=== PATIENT | male | born 1995 | race Native Hawaiian/Other Pacific Islander ===

== ENCOUNTER 2023-04-25 14:14 | Inpatient (IN) | payer MEDICAID ==
[2023-04-25] VITALS (8 sets, daily range): BP systolic 129–142; BP diastolic 71–81
[~2023-04-25] VITALS: Ht 175.3 cm; Wt 90.9 kg
[2023-04-25 15:06] LABS: CLARITY,URINE CLOUDY (Clear); COLOR,URINE YELLOW (Yellow); GLUCOSE, URINE NEGATIVE (Neg); KETONES,URINE NEGATIVE (Neg); LEUKOCYTE ESTERASE ,URINE NEGATIVE (Neg); NITRITES, URINE NEGATIVE (Neg); OCCULT BLOOD,URINE TRACE-INTACT (Neg); PH,URINE 6.5 (4.8-8.0); PROTEIN,URINE NEGATIVE (Neg); UROBILINOGEN,URINE 0.2 E.U/dL (0.2-1.0)
[2023-04-25 15:17] LABS: UA COLLECTION TYPE CLN CATCH MIDSTREAM
[2023-04-25 15:18] LABS: AMORPHOUS PHOSPHATES 2+
[2023-04-25 15:20] LABS: BACTERIA,URINE FEW /HPF (Neg); MUCUS STRANDS FEW /LPF (Neg); SQUAMOUS EPITHELIAL CELL,UR FEW /LPF (FEW)
[2023-04-25 15:29] LABS: BASOPHILS # (AUTO) 0.2 X10'3 (0-0.2); BASOPHILS % (AUTO) 0.8 % (0-1); EOSINOPHILS # (AUTO) 0.2 X10'3 (0-0.9); EOSINOPHILS % (AUTO) 0.9 % (0-6); HEMATOCRIT 41.1 % (42.0-52.0); HEMOGLOBIN 13.7 g/dl (14.0-17.9); LYMPHOCYTES # (AUTO) 1.6 X10'3 (1.1-4.8); LYMPHOCYTES % (AUTO) 8.6 % (21-51); MEAN CORPUSCULAR HEMOGLOBIN 29.8 PG (27.0-31.0); MEAN CORPUSCULAR HGB CONC 33.4 g/dL (33.0-36.5); MEAN CORPUSCULAR VOLUME 89.4 FL (78-98); MEAN PLATELET VOLUME 8.7 FL (7.4-10.4); MONOCYTES # (AUTO) 0.6 X10'3 (0-0.9); MONOCYTES % (AUTO) 3.3 % (2-12); NEUTROPHILS # (AUTO) 15.9 X10'3 (1.8-7.7); NEUTROPHILS % (AUTO) 86.4 % (42-75); PLATELET COUNT 296 X10'3 (140-440); RED BLOOD COUNT 4.59 X10'6 (4.70-6.10); RED CELL DISTRIBUTION WIDTH 13.6 % (11.5-14.5); WHITE BLOOD COUNT 18.5 X10'3 (4.5-11.0)
[2023-04-25 15:41] LABS: ALANINE AMINOTRANSFERASE 33 U/L (12-78); ALBUMIN 4.5 G/DL (3.4-5.0); ALBUMIN/GLOBULIN RATIO 1.3 (1.1-1.5); ALKALINE PHOSPHATASE 79 IU/L (46-116); ANION GAP 10 (8-16); ASPARTATE AMINO TRANSFERASE 16 U/L (10-37); BILIRUBIN,TOTAL 0.5 MG/DL (0.1-1.0); BLOOD UREA NITROGEN 17 MG/DL (7-18); BUN/CREATININE RATIO 18.7 (10.0-20.0); CALCIUM 9.7 MG/DL (8.5-10.1); CHLORIDE 106 MMOL/L (99-107); CREATININE 0.91 MG/DL (0.60-1.10); GLUCOSE 114 MG/DL (70-104); LIPASE < 50 U/L (73-393); POTASSIUM 4.1 MMOL/L (3.5-5.1); SODIUM 143 MMOL/L (135-145); TOTAL CARBON DIOXIDE 27.1 MMOL/L (24-32); eGFR > 90 ML/MIN
[2023-04-25] MEDS ORDERED: normal saline 1000ML IV soln IVB ONE (16:00)
[2023-04-25] MEDS ORDERED: ondansetron/PF 4mg/2ml inj IV ONE (16:00)
[2023-04-25 16:16] LABS: PLATELET ESTIMATE NORMAL; TOTAL CELLS COUNTED 100
[2023-04-25] MEDS: morphine 4 MG/ML inj SYRINge IV PRN ×4 (17:01→22:35)
[2023-04-25] MEDS ORDERED: piperacillin/tazo 3.375gm/50ml 50 ML IV ONE (17:35)
[2023-04-25] MEDS ORDERED: magnesium 2GM in 50ml NS 50 ML IV PRN (18:15)
[2023-04-25] MEDS ORDERED: acetaminophen 325mg tablet PO PRN ×2 (18:15)
[2023-04-25] MEDS ORDERED: potassium Cl 40MEQ/1/2NS 520ml 520 ML IV PRN (18:15)
[2023-04-25] MEDS ORDERED: piperacillin/tazo 4.5gm/100ml 100 ML IV SCH ×2 (18:15→19:16)
[2023-04-25] MEDS ORDERED: magnesium 4gm in 100ml NS 100 ML IV PRN (18:15)
[2023-04-25] MEDS ORDERED: mag hydrox/Alum hydrox/simeth 30ml oral suspension PO PRN (18:15)
[2023-04-25] MEDS ORDERED: magnesium hydroxide 30ml (MOM) UD suspension PO PRN (18:15)
[2023-04-25] MEDS ORDERED: magnesium Cl slow-release 64mg tablet PO PRN (18:15)
[2023-04-25] MEDS ORDERED: potassium Cl 20 mEq SR tablet PO PRN (18:15)
[2023-04-25] MEDS ORDERED: HYDROcodone/acetaminophen 5mg/325mg tablet PO PRN (18:15)
[2023-04-25] MEDS ORDERED: morphine 2 MG/ML inj. syringe IV PRN ×2 (18:15→19:20)
[2023-04-25] MEDS: normal saline 1000ml 1,000 ML IV SCH (19:06)
[2023-04-25] MEDS ORDERED: proCHLORperazine 10 MG/2 ml inj IV PRN (19:20)
[2023-04-25] MEDS ORDERED: meperidine/PF 25mg/ml syringe IV PRN ×3 (19:20)
[2023-04-25] MEDS ORDERED: ondansetron/PF 4mg/2ml inj IV PRN ×2 (19:20→21:50)
[2023-04-25] MEDS ORDERED: ringers solution, lacted 1,000 ML IV SCH (19:20)
--- NOTE | 2023-04-25 19:21 | NUR ---
RN CALLED OR AND SPOKE WITH VAL AND LET HER KNOW THAT PT DOES NOT HAVE AN ORDER FOR CONSENT. PER VAL SHE WILL GET CONSENT WHEN PT GETS TO OR.
[2023-04-25] MEDS: K and/or MAG REPLACEMENT MC SCH (20:00)
[2023-04-25] MEDS ORDERED: dexamethasone sod phosphate 10mg/ml inj ONE (20:30)
[2023-04-25] MEDS ORDERED: neostigmine methylsulfate 1 MG/ML 10ml vial ONE (20:30)
[2023-04-25] MEDS ORDERED: glycopyrrolate 0.2mg/ml inj ONE (20:30)
[2023-04-25] MEDS ORDERED: sevoflurane 250ml liquid IH ONE (20:30)
[2023-04-25] MEDS ORDERED: ondansetron/PF 4mg/2ml inj ONE (20:30)
[2023-04-25] MEDS ORDERED: midazolam 1 mg/ML 2ml injection ONE (20:34)
[2023-04-25] MEDS ORDERED: fentaNYL /PF 50mcg/ml 5ml ampule ONE (20:34)
[2023-04-25] MEDS ORDERED: propofol inj 20 ML IV ONE (20:36)
[2023-04-25] MEDS ORDERED: rocuronium 10mg/ml inj IV ONE (20:36)
[2023-04-25] MEDS ORDERED: LIDOcaine 2% (20mg/ml) 5ml vial ONE (20:37)
[2023-04-25] MEDS ORDERED: BUPIVAcaine/PF 2.5 mg/ml (0.25%) 30ml vial ONE (20:44)
[2023-04-25] MEDS ORDERED: HYDROcodone/acetaminophen 10/325mg tab PO PRN (21:50)
[2023-04-25] MEDS ORDERED: naloxone 0.4 mg/ml inj IV PRN (21:50)
--- NOTE | 2023-04-25 21:58 | NUR ---
Received from OR via BED, accompanied by Anesthesiologist and report given by Anesthesiolgist AND OR NURSE. PT ARRIVED DROWSY ON ROOM AIR. VSS. DENIES PAIN OR NAUSEA. PER RN, PT PULLED IV OUT POST SURGERY, WILL START NEW IV AFTER INITIAL ASSESSMENT. 3 ABD BANDAID SITES C/D/I. WILL CONTINUE TO MONITOR. Addendum: 04/25/23 at 2206 by Grecia Horne RN Amended: Links added.
--- NOTE | 2023-04-25 22:58 | NUR ---
PT HAS MET D/C CRITERIA FROM [facility]. SBAR REPORT GIVEN TO NURSEMARIA VICTORIA ON PCU. 20G IV TO R AC RUNNING LR. VSS. 3 ABD LAP SITE BANDAIDS C/D/I. SCDS APPLIED. PT HAS BEEN RESTING WITH EYES CLOSED. MADE AWARE OF TRANSPORT. PT ONLY BELONGINGS ARE A PAIR OF BLACK SHOES AND THEY WERE SENT TO PCU WITH PT. TEACHING COMPLETED. STAFF AT BEDSIDE TO ASSUME CARE OF PT. BED LOCKED AND IN LOW POSITION. CALL LIGHT IN REACH. Addendum: 04/25/23 at 2302 by Grecia Horne RN Amended: Links added.
--- NOTE | 2023-04-25 23:00 | NUR ---
Patient in room PCU 3023. I have received report from Grecia SANCHEZ from recovery and had the opportunity to ask questions and assume patient care.
[2023-04-25] MEDS ORDERED: CHOL500049 PO (23:47)
[2023-04-25] MEDS ORDERED: FLUO10TA34 PO (23:47)
[2023-04-25] MEDS ORDERED: TERB250T89 PO (23:47)
[2023-04-25] MEDS ORDERED: CHOL100046 PO (23:50)
[2023-04-26 02:00] VITALS: BP 125/71
[2023-04-26] MEDS: piperacillin/tazo 4.5gm/100ml 100 ML IV SCH ×3 (02:43→17:35)
[2023-04-26] MEDS: morphine 2 MG/ML inj. syringe IV PRN ×3 (02:54→21:47)
[2023-04-26] MEDS: normal saline 1000ml 1,000 ML IV SCH ×2 (05:57→14:48)
[2023-04-26 06:00] VITALS: BP 107/65
[2023-04-26] MEDS: ondansetron/PF 4mg/2ml inj IV PRN (06:44)
--- NOTE | 2023-04-26 07:05 | NUR ---
Problems reprioritized. Patient report given, questions answered & plan of care reviewed with Bailey SANCHEZ.
[2023-04-26 07:17] LABS: BASOPHILS % (AUTO) 0.1 % (0-1); EOSINOPHILS % (AUTO) 0 % (0-6); HEMOGLOBIN 13.8 g/dl (14.0-17.9); LYMPHOCYTES # (AUTO) 0.7 X10'3 (1.1-4.8); LYMPHOCYTES % (AUTO) 3.5 % (21-51); MEAN CORPUSCULAR HEMOGLOBIN 30.3 PG (27.0-31.0); MEAN CORPUSCULAR HGB CONC 33.8 g/dL (33.0-36.5); MEAN CORPUSCULAR VOLUME 89.7 FL (78-98); MEAN PLATELET VOLUME 8.7 FL (7.4-10.4); MONOCYTES # (AUTO) 0.9 X10'3 (0-0.9); MONOCYTES % (AUTO) 4.4 % (2-12); NEUTROPHILS # (AUTO) 19.6 X10'3 (1.8-7.7); PLATELET COUNT 280 X10'3 (140-440); RED BLOOD COUNT 4.57 X10'6 (4.70-6.10); RED CELL DISTRIBUTION WIDTH 13.6 % (11.5-14.5); WHITE BLOOD COUNT 21.3 X10'3 (4.5-11.0)
[2023-04-26 07:37] LABS: ALANINE AMINOTRANSFERASE 26 U/L (12-78); ALBUMIN 3.8 G/DL (3.4-5.0); ALBUMIN/GLOBULIN RATIO 1.2 (1.1-1.5); ALKALINE PHOSPHATASE 66 IU/L (46-116); ANION GAP 12 (8-16); ASPARTATE AMINO TRANSFERASE 14 U/L (10-37); BILIRUBIN,TOTAL 1.3 MG/DL (0.1-1.0); BLOOD UREA NITROGEN 12 MG/DL (7-18); CALCIUM 8.6 MG/DL (8.5-10.1); CHLORIDE 104 MMOL/L (99-107); GLUCOSE 137 MG/DL (70-104); POTASSIUM 3.4 MMOL/L (3.5-5.1); SODIUM 139 MMOL/L (135-145); eGFR 90 ML/MIN
[2023-04-26] MEDS: K and/or MAG REPLACEMENT MC SCH ×2 (08:00→20:00)
[2023-04-26] MEDS ORDERED: HYDR-3965 PO (10:41)
[2023-04-26] MEDS ORDERED: potassium Cl 20 mEq SR tablet PO STA (10:48)
[2023-04-26] MEDS: HYDROcodone/acetaminophen 10/325mg tab PO PRN ×3 (10:58→20:14)
[2023-04-26 11:00] VITALS: BP 121/60
[2023-04-26 15:00] VITALS: BP 131/80
[2023-04-26] MEDS: ketorolac trometh. 30mg/ml inj. IV PRN (16:54)
[2023-04-26 18:00] VITALS: BP 107/52
--- NOTE | 2023-04-26 18:15 | NUR ---
Patient in room PCU 3023. I have received report from DANIEL Avalos and had the opportunity to ask questions and assume patient care.
--- NOTE | 2023-04-26 18:36 | NUR ---
Problems reprioritized. Patient report given, questions answered & plan of care reviewed with Nathalia SANCHEZ.
[2023-04-26] MEDS: FLUoxetine 10mg capsule PO SCH (20:14)
[2023-04-26 22:00] VITALS: BP 128/68
[2023-04-27] MEDS: normal saline 1000ml 1,000 ML IV SCH ×3 (00:27→22:51)
[2023-04-27 02:00] VITALS: BP 126/74
[2023-04-27] MEDS: piperacillin/tazo 4.5gm/100ml 100 ML IV SCH ×3 (02:04→20:50)
[2023-04-27] MEDS: ketorolac trometh. 30mg/ml inj. IV PRN (05:55)
[2023-04-27 06:00] VITALS: BP 114/69
--- NOTE | 2023-04-27 06:12 | NUR ---
Problems reprioritized. Patient report given, questions answered & plan of care reviewed with DANIEL Avalos.
[2023-04-27 07:30] LABS: BASOPHILS % (AUTO) 0.3 % (0-1); EOSINOPHILS # (AUTO) 0.1 X10'3 (0-0.9); EOSINOPHILS % (AUTO) 0.4 % (0-6); HEMATOCRIT 36.5 % (42.0-52.0); HEMOGLOBIN 12.3 g/dl (14.0-17.9); LYMPHOCYTES # (AUTO) 0.9 X10'3 (1.1-4.8); MEAN CORPUSCULAR HEMOGLOBIN 30.4 PG (27.0-31.0); MEAN CORPUSCULAR HGB CONC 33.8 g/dL (33.0-36.5); MEAN CORPUSCULAR VOLUME 89.9 FL (78-98); MEAN PLATELET VOLUME 9.1 FL (7.4-10.4); MONOCYTES # (AUTO) 0.9 X10'3 (0-0.9); MONOCYTES % (AUTO) 5.6 % (2-12); NEUTROPHILS # (AUTO) 13.8 X10'3 (1.8-7.7); NEUTROPHILS % (AUTO) 87.7 % (42-75); PLATELET COUNT 232 X10'3 (140-440); RED BLOOD COUNT 4.06 X10'6 (4.70-6.10); RED CELL DISTRIBUTION WIDTH 13.9 % (11.5-14.5); WHITE BLOOD COUNT 15.7 X10'3 (4.5-11.0)
[2023-04-27] MEDS: FLUoxetine 10mg capsule PO SCH (07:33)
[2023-04-27 07:55] LABS: ALANINE AMINOTRANSFERASE 27 U/L (12-78); ALBUMIN 3.2 G/DL (3.4-5.0); ALBUMIN/GLOBULIN RATIO 0.9 (1.1-1.5); ALKALINE PHOSPHATASE 73 IU/L (46-116); ANION GAP 11 (8-16); ASPARTATE AMINO TRANSFERASE 23 U/L (10-37); BILIRUBIN,TOTAL 1.6 MG/DL (0.1-1.0); BLOOD UREA NITROGEN 9 MG/DL (7-18); BUN/CREATININE RATIO 9.2 (10.0-20.0); CALCIUM 8.6 MG/DL (8.5-10.1); CHLORIDE 104 MMOL/L (99-107); CREATININE 0.98 MG/DL (0.60-1.10); GLUCOSE 130 MG/DL (70-104); POTASSIUM 3.2 MMOL/L (3.5-5.1); SODIUM 136 MMOL/L (135-145); TOTAL CARBON DIOXIDE 21.5 MMOL/L (24-32); TOTAL PROTEIN 6.8 G/DL (6.4-8.2); eGFR > 90 ML/MIN
[2023-04-27] MEDS: K and/or MAG REPLACEMENT MC SCH ×2 (08:00→20:00)
[2023-04-27] MEDS: potassium Cl 20 mEq SR tablet PO PRN ×3 (09:43→20:49)
[2023-04-27] MEDS: HYDROcodone/acetaminophen 10/325mg tab PO PRN (09:50)
[2023-04-27] MEDS: ondansetron/PF 4mg/2ml inj IV PRN (10:13)
[2023-04-27 11:00] VITALS: BP 123/65
[2023-04-27] MEDS ORDERED: oxyCODONE/APAP 10/325mg tablet PO STA (11:31)
--- NOTE | 2023-04-27 11:40 | NUR ---
Contacted Dr Ann regarding patient wanting to leave AMA. Patient was already pulling IV out when I got to the room. When I went into check on patient 1 hour prior he was fine resting after being given Zofran by concrete spreader. I advised patient if his IV starts to beep again to let me know and I will start a new IV. Patient and both verbalized understanding. Patient was given [place] earlier and aware when Dr Ann rounds he will address the [place] vs Percocet order per the conversation and I had. Patient was very upset in the room his was at bedside trying to convince to stay. She asked if we could get a transfer to [facility]. When I went back into room after speaking with Dr Ann and getting a one time order for Percocet now Patient was willing to stay with the percocet now and getting a new IV placed. was very upset at bedside and felt that I was disregarding her about patients prozac. I advised patients that I was addressing my patients concerns and was not disregarding him but my 1st concern is addressing my patients concerns and then I would speak with her about his medications and seeing if I could get that addressed. Patient was given the Percocet and my discharge planner Kristal is in the patients room trying to start a new IV.
--- NOTE | 2023-04-27 12:24 | NUR ---
Spoke with Melissa Jack at [facility] pharmacy on [address] : Orders stated Fluoxetine 10 mg daily by mouth for 1 week then take 2 tablets by mouth daily
--- NOTE | 2023-04-27 14:19 | NUR ---
Per Patients patient is currently taking 3 tablets a day of his Fluoxetine and his dose was just increased by Dr Bains. Contacted Amnatony Garcia in [facility] and per Chelle who is a call welcome center attendant she does not see any notes indicating that patients medication has been increased from 10 mg PO BID. I asked if she could get ahold of the nurse to see if they have any different notes. At this time she has not been able to reach anyone but will submit a request for someone from the office to call me back regarding medication Fluoxetine dosage.
--- NOTE | 2023-04-27 14:38 | NUR ---
Per Kaylah Bains nurse patients notes in chart state that patient takes 30mg PO Fluoxetine daily. Kaylah will make sure this gets corrected with patients pharmacy. Received orders from Dr Ann to go ahead and give patient an additional dose of 20 mg PO Fluoxetine now and then change dose to 30 mg PO daily starting tomorrow. Patient requesting tomorrows dose to be at night due to that is when he normally takes the medication. Addendum: 04/27/23 at 1441 by Bailey Santiago RN Per Kaylah patient starting taking this dose on 04/06/23 Dr Dubose changed it to this dosage.
[2023-04-27] MEDS ORDERED: FLUoxetine 20mg capsule PO ONE (14:45)
[2023-04-27 15:00] VITALS: BP 132/72
[2023-04-27] MEDS: oxyCODONE/APAP 10/325mg tablet PO PRN ×2 (15:13→20:49)
[2023-04-27 18:00] VITALS: BP 125/68
--- NOTE | 2023-04-27 18:25 | NUR ---
Patient in room PCU 3023. I have received report from DANIEL Avalos and had the opportunity to ask questions and assume patient care.
--- NOTE | 2023-04-27 18:35 | NUR ---
Problems reprioritized. Patient report given, questions answered & plan of care reviewed with Nathalia SANCHEZ.
[2023-04-27] MEDS: docusate sod 100mg capsule PO SCH (20:48)
[2023-04-27] MEDS: magnesium hydroxide 30ml (MOM) UD suspension PO SCH (20:49)
[2023-04-27 22:00] VITALS: BP 126/68
[2023-04-28 02:00] VITALS: BP 124/68
[2023-04-28] MEDS: piperacillin/tazo 4.5gm/100ml 100 ML IV SCH ×2 (02:10→10:31)
--- NOTE | 2023-04-28 06:19 | NUR ---
Problems reprioritized. Patient report given, questions answered & plan of care reviewed with DANIEL Feliz.
[2023-04-28 07:09] LABS: BASOPHILS % (AUTO) 0.2 % (0-1); EOSINOPHILS # (AUTO) 0.2 X10'3 (0-0.9); EOSINOPHILS % (AUTO) 1.6 % (0-6); HEMOGLOBIN 12.9 g/dl (14.0-17.9); LYMPHOCYTES # (AUTO) 0.9 X10'3 (1.1-4.8); LYMPHOCYTES % (AUTO) 6.8 % (21-51); MEAN CORPUSCULAR HEMOGLOBIN 30.5 PG (27.0-31.0); MEAN CORPUSCULAR HGB CONC 33.8 g/dL (33.0-36.5); MEAN CORPUSCULAR VOLUME 90.2 FL (78-98); MEAN PLATELET VOLUME 8.8 FL (7.4-10.4); MONOCYTES # (AUTO) 0.9 X10'3 (0-0.9); MONOCYTES % (AUTO) 6.6 % (2-12); NEUTROPHILS # (AUTO) 11.1 X10'3 (1.8-7.7); NEUTROPHILS % (AUTO) 84.8 % (42-75); PLATELET COUNT 238 X10'3 (140-440); RED BLOOD COUNT 4.21 X10'6 (4.70-6.10); RED CELL DISTRIBUTION WIDTH 13.5 % (11.5-14.5); WHITE BLOOD COUNT 13.1 X10'3 (4.5-11.0)
[2023-04-28 07:17] VITALS: BP 122/70
[2023-04-28 07:20] LABS: ALANINE AMINOTRANSFERASE 36 U/L (12-78); ALBUMIN 3.2 G/DL (3.4-5.0); ALBUMIN/GLOBULIN RATIO 0.7 (1.1-1.5); ALKALINE PHOSPHATASE 113 IU/L (46-116); ANION GAP 13 (8-16); ASPARTATE AMINO TRANSFERASE 26 U/L (10-37); BILIRUBIN,TOTAL 2.2 MG/DL (0.1-1.0); BLOOD UREA NITROGEN 9 MG/DL (7-18); CALCIUM 8.9 MG/DL (8.5-10.1); CHLORIDE 103 MMOL/L (99-107); GLUCOSE 107 MG/DL (70-104); POTASSIUM 3.6 MMOL/L (3.5-5.1); SODIUM 138 MMOL/L (135-145); TOTAL CARBON DIOXIDE 22.4 MMOL/L (24-32); TOTAL PROTEIN 7.5 G/DL (6.4-8.2); eGFR > 90 ML/MIN
[2023-04-28] MEDS: K and/or MAG REPLACEMENT MC SCH (08:00)
[2023-04-28] MEDS: docusate sod 100mg capsule PO SCH (08:08)
[2023-04-28] MEDS: magnesium hydroxide 30ml (MOM) UD suspension PO SCH (08:08)
[2023-04-28] MEDS: ketorolac trometh. 30mg/ml inj. IV PRN (09:10)
[2023-04-28] MEDS ORDERED: polyethylene glycol 3350 17gm powd pack PO SCH (09:35)
[2023-04-28] MEDS ORDERED: oxyCODONE/APAP 10/325mg tablet PO PRN (09:35)
[2023-04-28] MEDS ORDERED: methylnaltrexone br 12mg/0.6ml inj***SubQ only SQ PRN (09:35)
[2023-04-28] MEDS: normal saline 1000ml 1,000 ML IV SCH (10:35)
[2023-04-28 12:04] VITALS: BP 110/74
[2023-04-28] MEDS ORDERED: IBUP-1985 PO (13:16)
[2023-04-28] MEDS ORDERED: METR-159 PO ×2 (13:16)
[2023-04-28] MEDS ORDERED: CIPR-259 PO (13:16)
[2023-04-28] MEDS ORDERED: OMEP20CA15 PO (13:16)
[2023-04-28] MEDS ORDERED: FLUoxetine 10mg capsule PO SCH (20:00)
== END 2023-04-28 14:05 | disposition home or self-care (01) | DRG 234 ==
LOC: ER 14:15 → ED HOLD 18:21 → PCU 3S 22:50
PROVIDERS: ADMIT Internal Medicine; ATTEND Internal Medicine
PROC: 0DTJ4ZZ Resection of Appendix, Percutaneous Endoscopic Approach (ICD-10-PCS; principal; 2023-04-25 20:30)
DX: K35.30 Acute appendicitis with localized peritonitis, without perforation or gangrene (principal); R65.10 Systemic inflammatory response syndrome (SIRS) of non-infectious origin without acute organ dysfunction; R16.0 Hepatomegaly, not elsewhere classified; L05.91 Pilonidal cyst without abscess; D72.829 Elevated white blood cell count, unspecified; F32.A Depression, unspecified; F41.9 Anxiety disorder, unspecified; E87.6 Hypokalemia; F12.10 Cannabis abuse, uncomplicated; Z71.51 Drug abuse counseling and surveillance of drug abuser; Q63.1 Lobulated, fused and horseshoe kidney
CPT/HCPCS: 36415; 74176; 76700; 80053; 81001; 83605; 83690; 84145; 85007; 85025; 85651; 86140; 86885; 86900; 86901; 87040; 87088; 99285; A4215; A4618; A6258; A7000; G0378; J0780; J1100; J1885; J2250; J2270; J2405; J2543; J2704; J2710; J3010; J3490; J7030; J7120

== ENCOUNTER → 2024-03-30 | Outpatient (CLI) | payer MEDICAID ==
[~2024-03-30] MED LIST: CHOL100046 PO; FLUO10TA34 PO; IBUP-1985 PO; METR-159 PO; OMEP20CA15 PO; iohexol 300mg/ml 100ml inj. ONE
== END | disposition home or self-care (01) ==
LOC: RAD 10:07
PROVIDERS: ATTEND Family Medicine
DX: M89.8X8 Other specified disorders of bone, other site (principal); M89.9 Disorder of bone, unspecified
CPT/HCPCS: 72193; Q9967